=== PATIENT | female | born 1970 | race Caucasian/White ===

== ENCOUNTER 2024-07-18 11:04 | Outpatient (AMB) | payer OTHER, SELFPAY ==
--- NOTE | 2024-07-18 11:09 | A.OFFPC_ITS ---
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 Intake Note: New patient visit Map Compiler Required: No Allergies No Known Allergies Allergy (Verified 07/18/24 11:23) Medication List - Last Reconciled 07/18/24 by VY Yoo- levothyroxine 150 mcg PO DAILY simvastatin 40 mg PO BEDTIME Tobacco use date assessed: 07/18/24 Dental Screening Dental Screen Date: 07/18/24 Did you have a dental visit in the last 12 months?: Yes Did you have a dental problem in the last 6 months where you did not have access to dental care?: No Was dental information given to patient?: Patient has dentist HPI HPI Comments History of Present Illness Details 54 y/o F with obesity, hypothyroid, HLD, MDD, menopause Social: recently , in school for [employer], will be done middle of next year; working at [employer] Surgery: s/p bilat hip replacement, s/p lap band that was removed Health Maintenance Mammo ordered today DEXA ordered today [place] [facility] [place] [facility] [employer] [place] Colon done at [place], declined updated referral at this time; Tdap admin today Specialists Counseling History of Present Illness - The patient is a 54-year-old female pr esenting for the establishment of care. Previous PCP: Trudi, no records avail. - Obesity with a BMI of 43.8. - Hyperlipidemia treated with simvastati n 40 mg. - Hypothyroidism managed with levothyrox ine 150 mcg; recent lapse in medication, but is now taking. - History of depression related to a pre vious marriage. Discontinuation of Cymbalta 60 mg. Feels needs this again, just at lower dose. Denies SI/HI. In counseling. - Post-menopausal. Review of Systems - General: Denies recent weight changes other than obesity concerns. - Endocrine: Reports hypothyroidism, man aged with medication. - Psychiatric: Reports episodes of depre ssion, seeking less medication following discontinuation of Cymbalta. - Musculoskeletal: Reports history of hi p replacements. - Reproductive/Breast: Reports menopause , denies current gynecological symptoms. Physical Exam General: Well developed, well nourished, in no acute distress. Appears stated age. Head: Normocephalic, atraumatic. Eyes: Pupils are equal, round and reactive to light and accommodation. Conjunctivae are clear. Neck: thyroid nontender. Lungs: Clear to auscultation bilaterally. No rales, rhonchi or wheeze noted. Good air flow in all galindo. Heart: Regular rate and rhythm. No murmurs, click, rubs or gallops are noted. Pulses: Peripheral pulses are equal and palpable bilaterally. Extremities: No clubbing, cyanosis nor edema is noted. Psych: Mood and affect appropriate. Results Pending. Discussion Notes During the visit, we discussed the management of several chronic conditions, such as obesity, hyperlipidemia, and hypothyroidism. We reviewed the patient's challenges with past medication refills, particularly with levothyroid and Cymbalta, and outlined the plans for managing these prescriptions going forward. I underscored the importance of completing a thorough lab workup, including assessments for thyroid function and cholesterol levels, and screening for anemia and diabetes. I initiated orders for these tests. Additionally, we agreed to address her needs for a mammogram and bone density screening, and I informed her about setting up an account on our patient portal for more streamlined and direct communication. We also agreed to restart Cymbalta at a lower dose of 20 mg once daily due to previous difficulties and planned follow-up consultations. Assessment and Plan 1. Obesity - Order baseline labs for metabolic and thyroid evaluation. - Continue comprehensive management. 2. Hyperlipidemia - Continue simvastatin 40 mg daily. - Order lipid panel. - will send refill of simvastatin after labs are reviewed. 3. Hypothyroidism - Continue levothyroxine 150 mcg daily. - Check thyroid labs. - refill will be needed once lab are rev iewed 4. Depression - Restart Cymbalta at 20 mg daily. - Monitor changes. - cont counseling, fu on efficacy at nex t visit 5. Menopause - Schedule mammogram and bone density te sting. RTO in a few weeks for a CPE and to f/u on mood after starting Duloxetine. Patient Instructions - Continue current medications?levothyro xine and simvastatin?as prescribed. - Begin Cymbalta 20 mg daily and report any side effects. - Complete lab tests as directed today. - Follow up with all scheduled screening s as informed. - Use the patient portal for communicati on with the healthcare provider. At close of note, there are no labs resulted or pending. once these are available i can send a refill. Consent Patient was informed and verbally consented to the use of an ambient scribe for clinic note documentation during this visit. Total time spent caring for the patient today was 40 minutes. This includes time spent before the visit reviewing the chart, time spent during the visit, and time spent after the visit on documentation, reviewing laboratory results, diagnostic imaging, medications, performing a medically necessary evaluation, counseling on diagnoses, care coordination, ordering appropriate tests, ordering appropriate medications, review of tests performed by other providers, reporting test results with the patient, communication with other healthcare providers. 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 1. Little interest or pleasure in doing things: not at all 2. Feeling down, depressed, or hopeless: not at all 3. Trouble falling or staying asleep, or sleeping too much: not at all 4. Feeling tired or having little energy: not at all 5. Poor appetite or overeating: not at all 6. Feeling bad about yourself - or that you are a failure or have let yourself or your family down: not at all 7. Trouble concentrating on things, such as reading the newspaper or watching television: not at all 8. Moving or speaking so slowly that other people could have noticed. Or the opposite - being so fidgety or restless that you have been moving around a lot more than usual: not at all 9. Thoughts that you would be better off or of hurting yourself in some way: not at all Total score: 0 Depression Screening Interpretation: Negative Depression Screening Done: Yes 56773 - PHQ-9 Billing: Yes Source: Developed by Drs. Roberto Groves, Tiffany Vann, Mayito Ortez and colleagues, with an educational nanci from [employer]. Thrive Questionnaire Date Thrive assessed: 07/18/24 I am a: Patient What is your living situation today?: I have a steady place to live Within the past 12 months, did the food you bought not last and you didn't have the money to get more?: Never true Within the past 12 months, did you worry whether your food would run out before you got money to buy more?: Never true Do you have trouble paying for medicines?: No Do you have trouble getting transportation to medical appointments?: No Do you have trouble paying your heating and electricity bill?: No Do you have trouble taking care of your child, family member or friend?: No Do you have trouble with day-to-day activities such as bathing, preparing meals, shopping, managing finances, etc.?: No Are you currently unemployed and looking for a job?: No Are you interested in more education?: No Please select the resources that you would like help with: None Currently or been in a relationship where the following occur: Controlled Financially and Controlled Emotionally THRIVE Score: 2 AUDIT C Alcohol Use Questionnaire (AUDIT-C) 1. How often do you have a drink containing alcohol?: Monthly or less 2. How many drinks containing alcohol do you have on a typical day when you are drinking?: 1 or 2 3. How often do you have six or more drinks on one occasion?: Never Total Score: 1 Score Reviewed/Action Taken: Yes PABLO-7 AMB Questionnaire PABLO-7 Date PABLO - 7 assessed: 07/18/24 Feeling nervous, anxious, or on edge: 0 = Not at all Not being able to stop or control worryin = Not at all Worrying too much about different things: 0 = Not at all Trouble relaxin = Not at all Being so restless that it is hard to sit still: 0 = Not at all Becoming easily annoyed or irritable: 0 = Not at all Feeling afraid as if something awful might happen: 0 = Not at all Total PABLO-7 score (0-4 normal; 5-9 mild; 10-14 moderate; 15-21 severe): 0 Source: Developed by Drs. Roberto Groves, Tiffany Vann, Mayito Ortez and colleagues, with an educational nanci from [employer]. PABLO-7 Assessment Billing PABLO-7 Assessment Tool: PABLO-7 Assessment 73761 Physical exam (Primary Care) Vital Signs: Last Vital Signs Temp 97.5 F 07/18/24 11:14 Pulse 76 07/18/24 11:14 Resp 14 07/18/24 11:14 BP 124/86 07/18/24 11:14 Pulse Ox 97 07/18/24 11:14 Oxygen Delivery Method Room Air 07/18/24 11:14 BMI result Body Mass Index 43.8 BMI Assessment/Plan discussion: High BMI High, discussed plan: lifestyle Tobacco/Smoking Status: Tobacco use Status Tobacco use date assessed 07/18/24 07/18/24 11:13 Patient Tobacco Use Status Former Tobacco user 07/18/24 11:27 e-Cigarette/Vaping Use Never Used 07/18/24 11:27 PHQ-9: PHQ-9 Score PHQ-9: Total score 0 07/18/24 11:16 Depression Screening Interpretation: Negative Thrive Assessment: Date of Thrive Assessment Date Thrive assessed 07/18/24 07/18/24 11:13 Currently or been in a relationship where the following occur: Controlled Financially and Controlled Emotionally Immunizations Boostrix Tdap 2.5 Lf unit-8 mcg-5 Lf/0.5 mL intramuscular syringe Performing Provider: STEPHIE Yoo Performing Location: [facility] Family [facility] Administered by: Dot Mcclain CMA on 07/18/24 11:28 Dose Route Admin Location Dispensed Lot Number Expiration Date NDC Design Editor 0.5 mL IM Left Deltoid 0.5 mL [id number] 10/10/26 [id number] [employer] VIS Given Date VIS Provided VIS Publication Date 07/18/24 Single Vaccine 20 Eligibility Eligibility Date Funding Source Not [facility] Eligible 07/18/24 Private Coding Level of Care Code New Pt Level 4 (96426) Complex EM visit Add On G2211 Diagnoses Encounter to establish care Z76.89 Obesity, morbid, BMI 40.0-49.9 E66.01 Mixed hyperlipidemia E78.2 Hyperlipidemia type: mixed hyperlipidemia Acquired hypothyroidism E03.9 Hypothyroidism type: acquired History of bilateral hip replacements Z96.643 Laterality: bilateral Mild episode of recurrent major depressive disorder F33.0 Major depression episode severity: mild Need for Tdap vaccination Z23 Menopause Z78.0 Additional Codes PABLO-7 Assessment Billing - PABLO-7 Assessment Tool: PABLO-7 Assessment 60923 ([id number]) PHQ-9 - 65203 - PHQ-9 Billing: Yes ([id number]) Assessment & Plan Assessment & Plan (1) Encounter to establish care: Code(s): Z76.89 - Persons encountering health services in other specified circumstances Category: Medical (2) Obesity, morbid, BMI 40.0-49.9: Code(s): E66.01 - Morbid (severe) obesity due to excess calories Category: Medical (3) HLD (hyperlipidemia): Code(s): E78.5 - Hyperlipidemia, unspecified Category: Medical Qualifiers: Hyperlipidemia type: mixed hyperlipidemia Qualified Code(s): E78.2 - Mixed hyperlipidemia (4) Hypothyroid: Code(s): E03.9 - Hypothyroidism, unspecified Category: Medical Qualifiers: Hypothyroidism type: acquired Qualified Code(s): E03.9 - Hypothyroidism, unspecified (5) History of hip replacement: Code(s): Z96.649 - Presence of unspecified artificial hip joint Qualifiers: Laterality: bilateral Qualified Code(s): Z96.643 - Presence of artificial hip joint, bilateral (6) MDD (major depressive disorder), recurrent episode: Code(s): F33.9 - Major depressive disorder, recurrent, unspecified Category: Medical Qualifiers: Major depression episode severity: mild Qualified Code(s): F33.0 - Major depressive disorder, recurrent, mild (7) Need for Tdap vaccination: Code(s): Z23 - Encounter for immunization Category: Medical (8) Menopause: Code(s): Z78.0 - Asymptomatic menopausal state Category: Medical Plan . Orders: Orders TDaP Immunization Today Z23 - Encounter for immunization Comprehensive Met. Panel Today E03.9 - Hypothyroidism, unspecified, E78.5 - Hyperlipidemia, unspecified Complete Blood Count no Diff Today E03.9 - Hypothyroidism, unspecified, E78.5 - Hyperlipidemia, unspecified MM tomosynthesis screening BI Today Z12.31 - Encounter for screening mammogram for malignant neoplasm of breast XR DEXA axial skeleton Today Z13.820 - Encounter for screening for osteoporosis, Z78.0 - Asymptomatic menopausal state Hemoglobin A1c Today E03.9 - Hypothyroidism, unspecified, E78.5 - Hyperlipidemia, unspecified Lipid Panel Today E03.9 - Hypothyroidism, unspecified, E78.5 - Hyperlipidemia, unspecified IRON PROFILE Today E03.9 - Hypothyroidism, unspecified, E78.5 - Hyperlipidemia, unspecified Microalbumin, Random (w Creat) Today E03.9 - Hypothyroidism, unspecified, E78.5 - Hyperlipidemia, unspecified TSH reflex Free T4 Today E03.9 - Hypothyroidism, unspecified, E78.5 - Hyperlipidemia, unspecified Vitamin B12 and Folate Today E03.9 - Hypothyroidism, unspecified, E78.5 - Hyperlipidemia, unspecified Vitamin D 25-OH Total Today E03.9 - Hypothyroidism, unspecified, E78.5 - Hyperlipidemia, unspecified Referrals COUNT TEAM MEMBER Referral Z12.4 - Encounter for screening for malignant neoplasm of cervix Medications: New duloxetine (Cymbalta) 20 mg PO DAILY 90 caps 2RF Patient Instructions: Walk-In Care (Urgent Care): We Make it Easy Walk-in for urgent medical issues such as: ? Seasonal Allergies ? Insect Bites ? Cough ? Diarrhea ? Acute Asthma Attacks ? Back, Knee or Joint Pain ? Ear Infection ? Fever without a Rash ? Headaches ? Nausea ? [place], Rash or Skin Irritation ? Sore Throat ? Sports Physicals ? Vomiting Most insurances are accepted. Patients do not need to be part of the [facility] to seek care at the walk-in clinic. Locations [facility] , [place] [address] ? [phone] [facility] Walk-In Care in [place] provides services to ages 18 and over. Open Sunday-Sunday: 8 a.m. to 5 p.m. and Sunday: 9 a.m. to 3 p.m.* *Hours may vary due to staffing availability. To confirm Walk-In Care hours in [place], please call [phone]. [address] [facility], [place] [address] ? [phone] [facility] [place] Care in [place] provides services to ages 12 and over. Open Sunday-Sunday: 8 a.m. to 5 p.m. Hours may vary due to staffing availability. To confirm Walk-In Care hours in [place], please call [phone]. LABORATORY SERVICES: [facility] Lab ? Primary Location [address] [place] [address] Sunday through Sunday 6:00 AM ? 5:00 PM Sunday 7:00 AM ? 11:00 AM* [phone] The [facility] Lab is centrally located near the front entrance of the [facility] for easy outpatient access. Convenient parking is provided for outpatients. *Hours may vary due to staffing availability. To confirm Laboratory hours for any location, please call [phone]. Offsite Location For your convenience, we offer offsite laboratory draw stations at the following locations: [address] [place] [address] ? [address], [address] Sunday through Sunday 7:30 AM ? 1:00 PM* [phone] *Hours may vary due to staffing availability. To confirm Laboratory hours for any location, please call [phone]. [place] ? [address] Sunday through Sunday 6:00 AM ? 3:30 PM* Sunday 6:30 AM ? 3 PM* [phone] *Hours may vary due to staffing availability. To confirm Laboratory hours for any location, please call [phone] [place] [address] Sunday through Sunday 7:30 AM ? 4:00 PM* [phone] *Hours may vary due to staffing availability. To confirm Laboratory hours for any location, please call [phone] [place] [address] Sunday through 9:00 AM ? 4:00 PM* *Hours may vary due to staffing availability. To confirm Laboratory hours for any location, please call [phone]. Appointments are not necessary. Walk-ins are welcome. Like all the departments throughout the [facility], our Lab undergoes frequent reviews to ensure the quality and accuracy of test results, and our staff takes special pride in its status as a nationally accredited facility. Patient Portal: ONE PATIENT. ONE RECORD. BETTER CARE. [facility] has a fully integrated, cutting- edge mobile electronic health information system that has revolutionized the way we care for our patients and manage our organization. This system improves communication and coordination enabling us to provide safe, higher-quality care, and an overall positive experience for staff and patients. Our first priority, as always, is to deliver the highest quality care possible. The system is running in the background supporting that priority. This portal is for all [facility] services and practices. If you are experiencing any technical difficulties with enrolling or logging into the Patient Portal please complete the [facility] Patient Portal Technical Support Form. [facility] now offers a new secure on-line interactive tool for patients to review their health information ? ?Patient Portal. This interactive web portal will enable patients and their families to take an active role in their care by providing easy, secure access to their health information via the internet. The Patient Portal provides patients with instant access to their health information, including laboratory results, medications, allergies, demographic information, visit history, and more. In addition to managing their own care, parents and health care proxies with authorized consent will appreciate the ability to access the records of those individuals for whom they provide care. Please note: if you wish to gain access (Proxy) to another patient?s portal, you will be required to come to the Medical Records Department in person at [facility]. Both the patient giving proxy access and the proxy will need to provide photo identification and complete the appropriate authorization. The Patient Portal also allows track their appointments online. The [facility] Patient Portal also saves patients time by allowing them to submit updates to their demographic and contact information prior to their visits. Portal email notifications will also alert patients to any new activity on their portal, such as test results and new appointments. In order to initially enroll in the [facility] Patient Portal, you will need to enter some required information including the following: * your [facility] Medical Record number * your personal home email address * name * date of Please note: In order to enroll in the [facility] Patient Portal, we need to have your email address on file in your electronic medical record. ?The email address needs to be specific for one person (yourself) in order for your Portal enrollment to be successful. ?You can update your email address in person with our Registration staff when you are registering for a hospital visit. ?Otherwise, you will need to come to the Health Information Management (Medical Records) Department at [facility]. ?We are open from Sunday ? Sunday from 7:30 a.m. ? 4:30 p.m. ?You will be required to present a photo id. Once you have successfully enrolled in the Patient Portal, you will receive a one-time user id and password for the Portal, sent to your email address. ?This will allow you to log into the Patient Portal within 99 hrs and reset your own logon id and password, and define personal security questions. ?Once your permanent login and password have been set, you can log into the [facility] Patient Portal at any time via the blue button above or from the Portal Logon button on any page of the [facility] website. [facility] and [facility] encourage all of our patients to enroll in Patient Portal as it presents a valuable opportunity for patients and their families to actively participate in their care and stay healthy Welcome to [facility]. ?We look forward to working with you.
[2024-07-18 11:14] VITALS: BP 124/86; PULSE 76; RESP 14; TEMP 36.4; O2SAT 97; BMI 43.8
--- OUTSIDE RECORDS SUMMARY | 2024-07-18 11:56 | XMS_ITS | Clinical Summary ---
Author Organization [facility] [address] [facility] Address [address] [place] [address] Phone Care Team Providers Care Nuclear Physics Professor Name Role Phone Joanna Palomares MD Primary Care Provider [phone] Allergies No known active allergies Medications estradioL (ESTRACE) 0.5 mg tablet TAKE 1 TABLET BY MOUTH EVERYDAY AT BEDTIME 90 tablet 01/18/20 24 Active progesterone (Prometrium) 100 mg capsule TAKE (1) CAPSULE BY MOUTH AT BEDTIME. 90 capsule 01/18/20 24 Active valACYclovir (VALTREX) 500 mg tablet Take 1 tablet (500 mg total) by mouth 1 (one) time each day. Active DULoxetine (CYMBALTA) [address] capsule Take 1 capsule (60 mg total) by mouth 1 (one) time each day. Active lifitegrast (Xiidra) 5 % dropperette SOWMYA Active levothyroxine (SYNTHROID, LEVOTHROID) 150 mcg tablet 05/19/19 25 Active simvastatin (ZOCOR) 40 mg tablet Take 1 tablet (40 mg total) by mouth at bedtime. 18 tablet 07/01/19 25 Active simvastatin (ZOCOR) 40 mg tablet Take 1 tablet (40 mg total) by mouth at bedtime. 90 tablet 01/21/20 24 025 Discontinued(Re order) butalbital-acet aminophen-caffe ine (FIORICET, ESGIC) 50-325-40 mg per tablet Take 1 tablet by mouth. 01/15/20 20 025 Discontinued levothyroxine (SYNTHROID, LEVOTHROID) 125 mcg tablet TAKE 1 TABLET BY MOUTH EVERY DAY BEFORE BREAKFAST 90 tablet 1 02/05/20 24 025 Discontinued Active Problems Problem Noted Date Diagnosed Date History of total hip arthroplasty 04/24/2024 Overview (04/24/2024): Right 09/30, left 2021 Herpes infection 08/21/2022 Overview (04/24/2024): COVID-19 virus infection 01/26/2020 Lumbar spinal stenosis 12/01/2015 Overview (01/22/2024): L4-5 BALTA (iron deficiency anemia) 03/04/2015 GERD (gastroesophageal reflux disease) 5 Lichen sclerosus 04/24/2012 Hypothyroidism 04/08/2009 Allergic rhinitis 01/12/2009 Depression 01/12/2009 Hyperlipidemia 01/12/2009 Morbid obesity with BMI of 4 0.0-44.9, adult ([facility] V24, [facility] V28) Resolved Problems Problem Noted Date Diagnosed Date Resolved Date Elevated blood pressure reading 11/01/2023 04/24/2024 Blood glucose elevated 04/27/202104/24 Overview (01/22/2024): HA1c of 5.6% (April 2021) Immunizations Name Administration Dates Next Due Influenza trivalent, with preservative (Fluzone; Afluria) 6mo and older 12/04/2015,01/24/2013,11/30/2011,2009 Td Tetanus diptheria (Tdvax) 7yo and older 04/27/2021 Tdap Tetanus diptheria acell ular pertussis (Boostrix; Adacel) 7yo and older 01/12/2009 Surgical History Surgery Date Site/Laterality Comments SECTION ESOPHAGOGASTRODUODENOSCOPY 02/17/2015 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; normal duodenal bxys COLONOSCOPY 04/27/2015 normal; repeat in 10 yrs HAND SURGERY Right : [facility] arthritis surgery BACK SURGERY 2015 L4-5 disc fusion and decompression HIP ARTHROPLASTY 09/2018 Right OTHER SURGICAL HISTORY 2015 Lapband placed, then removed in 2019 (?) HIP ARTHROPLASTY 08/2021 Left Medical History Medical History Date Comments Gastroesophageal reflux dise ase without esophagitis 01/05/2015 Hyperlipidemia 01/12/2009 Depression 01/12/2009 Allergic rhinitis 01/12/2009 Hypothyroidism 04/08/2009 Lichen sclerosus 04/24/2012 BALTA (iron deficiency anemia) 03/04/2015 Lumbar spinal stenosis 12/01/2015 L4-5 Osteoarthritis of right hip 12/21/2018 : S/ p total hip replacement 09/2018 COVID-19 virus infection 01/26/2020 Family History Medical History Relation Name Comments Breast cancer Aunt maternal unilateral? ag e? - with bone mets Diabetes Brother x 2 Heart attack Father lung cancer (+s moker), HTN, HLD Pancreatic cancer Mother T2DM, hype rtension, cholesterol Diabetes Sister x 1 Relation Name Status Comments Aunt maternal Brother x 2 Alive Father Maternal Grandfather Maternal Grandmother Mother Paternal Grandfather Paternal Grandmother Sister x 1 Alive Social History Tobacco Use Types Packs/Day Years Used Date Smoking Tobacco: Former Cigarettes 0.5 4 0 02/12/1986 - 02/12/1990 Smokeless Tobacco: Never Alcohol Use Standard Drinks/Week Comments Yes 0 (1 standard drink = 0.6 oz pur e alcohol) Comments Unknown Sex and Gender Information Value Date Recorded Sex Assigned at Not on file Legal Sex Female 4:45 PM EST Gender Identity Not on file Sexual Orientation Not on file Obstetrics History Last Filed Vital Signs Vital Sign Reading Time Taken Comments Blood Pressure 146/84 11/01/2023 3:41 PM EDT Pulse 67 11/01/2023 3:30 PM EDT Temperature - - Respiratory Rate - - Oxygen Saturation - - Inhaled Oxygen Concentration - - Weight 106 kg (233 lb) 11/01/2023 3:30 PM EDT Height 156.2 cm (5' 1.5 ) 11/01/2023 3:30 PM EDT Body Mass Index 43.31 11/01/2023 3:30 PM EDT Plan of Treatment Health Maintenance Due Date Last Done Comments Hepatitis B Vaccines (1 of 3 - 19+ 3-dose series) 06/08/1990 Breast Cancer Screening 08/09/2019 08/08/2017 Pneumococcal Vaccine: 50+ Years (1 of 1 - PCV) 06/08/2021 Zoster Vaccines (1 of 2) 06/08/2021 Depression Screening 01/21/2022 HIV Screening 01/21/2022 Social Influencers of Health Screening 01/21/2022 COVID-19 Vaccine (3 - season) 2023 07/01/2020, 2020 Influenza Vaccine (Season Ended) 2024 12/04/2015, 01/24/2013, 11/30/2011, Additional history exists Cervical Cancer Screening: HPV 02/22/2025 02/23/2020 Colorectal Cancer Screening: Colonoscopy 04/26/2025 04/27/2015 Cholesterol Screening (Lipid Panel) 12/03/2028 12/04/2023, 12/04/2023 DTaP,Tdap,and Td Vaccines (3 - Td or Tdap) 04/28/2031 04/27/2021, 01/12/2009 Hepatitis C Screening Completed 03/03/2022 HIB Vaccines Aged Out No longer eligi ble based on patient's age to complete this topic HPV Vaccines Aged Out No longer eligi ble based on patient's age to complete this topic Hepatitis A Vaccines Aged Out No long er eligible based on patient's age to complete this topic IPV Vaccines Aged Out No longer eligi ble based on patient's age to complete this topic MMR Vaccines Aged Out No longer eligi ble based on patient's age to complete this topic Meningococcal ACWY Vaccine Aged Out N o longer eligible based on patient's age to complete this topic Meningococcal B Vaccine Aged Out No l onger eligible based on patient's age to complete this topic Pneumococcal Vaccine: Pediatrics (0 to 5 Years) and At-Risk Patients (6 to 64 Years) Aged Out No longer eligible based on patient's age to complete this topic RSV Immunization Patients Under 20 months Aged Out No longer eligible based on patient's age to complete this topic Varicella Vaccines Aged Out No longer eligible based on patient's age to complete this topic Procedures Procedure Name Priority Date/Time Associated Diagnosis Comments LIPID PANEL Routine 12/04/2023 HEPATITIS C SCREENING Routine 03/03/2022 HPV Routine 02/23/2020 SCR MAMMO BI INCL CAD Routine 08/08/2017 9:14 AM EDT Encounter for screening mammogram for malignant neoplasm of breast Hyperlipidemia, unspecified Atrophy of thyroid (acquired) Gastro-esophageal reflux disease without esophagitis COLONOSCOPY Routine 04/27/2015 from Last 3 Months or Most Recently Relevant to Health Maintenance Results * (ABNORMAL) Lipid panel (12/04/2023) Pathologist [facility] LDL/HDL Ratio 3 0 - 4 Triglycerides 150 0 - 150 mg/dL Cholesterol 191 0 - 200 mg/dL HDL 57 >=40 mg/dL LDL Cholesterol 104(A) 0 - 100 mg/dL Blood Venous blood specimen / Unknown [facility] Provider LAB BLOOD ORDERABLES Noemy l Result * Hepatitis C Screening (03/03/2022) Pathologist [facility] Hepatitis C Screening Abstracted [facility] Provider HEALTH MAINTENANCE Final Result * Cervical Cancer Screening: HPV (02/23/2020) [facility] Cervical Cancer Screening: HPV Negative, Abstracted [facility] Provider HEALTH MAINTENANCE Final Result * SCR MAMMO BI INCL CAD (08/08/2017 9:14 AM EDT) Anatomical Region Laterality Modality Radiographic Dominga ging 08/18/2016 12:0 4 PM EDT Narrative 08/08/2017 7:13 PM EDT This is a summary report. The complete report is available in the patient's medical record. If you cannot access the medical record, please contact the sending organization for a detailed fax or copy. Full field digital screening mammography, reviewed with CAD and compared to previous. ??The breasts are composed of fatty and fibroglandular tissue. ??No suspicious mass, architectural distortion or suspicious calcifications are identified. IMPRESSION: : No mammographic evidence of malignancy. BIRADS 1-Negative; N. 5 year breast cancer risk assessment 0.9 % Lifetime breast cancer risk assessment 9.6 % Breast cancer risk category Low (<15%) Procedure Note Gabriel Brice MD - 01/31/2022 This is a summary report. The complete report is available in thepatient's medical record. If you cannot access the medical record, pleasecontact the sending organization for a detailed fax or copy. Full field digital screening mammography, reviewed with CAD and comparedto previous. The breasts are composed of fatty and fibroglandular tissue.No suspicious mass, architectural distortion or suspicious calcificationsare identified. IMPRESSION: : No mammographic evidence of malignancy. BIRADS 1-Negative; N. 5 year breast cancer risk assessment 0.9 % Lifetime breast cancer risk assessment 9.6 % Breast cancer risk category Low (<15%) Иван VASQUEZ IMG XR PROCEDURES Final R esult * Colonoscopy (04/27/2015) Colonoscopy No Interpretation , Abstracted Anatomical Region Laterality Modality Other Historical Provider HEALTH MAINTENANCE Final Result from Last 3 Months or Most Recently Relevant to Health Maintenance Care Teams Nuclear Physics Professor Relationship Specialty Start Date End Date Joanna Palomares MD [address] [place] [address] PCP - General Internal Medicine 06/18/24
== END 2024-07-18 11:46 | disposition home or self-care (01) ==
LOC: HO.HMCFM 11:05
PROVIDERS: PCP Nurse Practitioner Family; Visit Provider Nurse Practitioner Family
DX: E78.2 Mixed hyperlipidemia (principal); E66.01 Morbid (severe) obesity due to excess calories; Z76.89 Persons encountering health services in other specified circumstances; Z68.41 Body mass index [BMI] 40.0-44.9, adult; E03.9 Hypothyroidism, unspecified; Z96.643 Presence of artificial hip joint, bilateral; F33.0 Major depressive disorder, recurrent, mild; Z23 Encounter for immunization; Z78.0 Asymptomatic menopausal state

== ENCOUNTER → 2024-07-18 11:04 | Outpatient (BNVA) | payer OTHER, SELFPAY | PROVIDERS: PCP Nurse Practitioner Family; Visit Provider Nurse Practitioner Family | DX: Z00.00 Encounter for general adult medical examination without abnormal findings (principal); E03.9 Hypothyroidism, unspecified; E66.01 Morbid (severe) obesity due to excess calories; E78.2 Mixed hyperlipidemia; F33.0 Major depressive disorder, recurrent, mild; Z23 Encounter for immunization; Z96.643 Presence of artificial hip joint, bilateral; Z78.0 Asymptomatic menopausal state; Z76.89 Persons encountering health services in other specified circumstances; Z68.41 Body mass index [BMI] 40.0-44.9, adult | CPT/HCPCS: 90471; 90715; 96127 ==

== ENCOUNTER 2024-08-14 11:33 | Outpatient (REF) | payer OTHER, SELFPAY ==
[2024-08-14 14:54] LABS: Hematocrit 43.0 % (37.0-47.0); Hemoglobin 14.9 g/dl (12.0-16.0); Mean Corpuscular HGB Conc 34.7 g/dl (31.0-35.0); Mean Corpuscular Hemoglobin 31.2 pg (27.0-33.0); Mean Corpuscular Volume 90.0 fL (80.0-98.0); NRBC Abs Auto 0.000 X10*3/uL (0.0-0.012); NRBC Pct Auto 0.0 /100WBC (0.0-0.2); Platelet Count 294 X10*3/uL (160-400); Red Blood Count 4.78 X10*6/uL (4.20-5.50); White Blood Count 5.6 X10*3/uL (4.8-10.8)
[2024-08-14 15:18] LABS: Hemoglobin A1C 122.2734 umol/L; Total Hemoglobin (HGBA1C) 3933.2673 umol/L
[2024-08-14 15:53] LABS: Folate 12.0 ng/mL (> or = 4.0); Vitamin B12 645 pg/mL (200-900)
[2024-08-14 15:57] LABS: Alanine Aminotransferase 34 U/L (0-31); Albumin Level 4.3 g/dL (3.5-5.0); Alkaline Phosphatase 68 U/L (39-117); Anion Gap 12 (12-20); Aspartate Amino Transferase 33 U/L (5-31); Blood Urea Nitrogen 10 mg/dL (9-16); Calcium 9.2 mg/dL (8.4-10.2); Carbon Dioxide 26 mmol/L (22-29); Chloride 106 mmol/L (96-108); Cholesterol 203 mg/dL (<200); Estimated Glomerular Filt Rate > 60; HDL Cholesterol 59 mg/dL (>40); Iron 106 mcg/dL (30-160); Percent Iron Saturation 37 % (15-50); Potassium 3.8 mmol/L (3.3-5.1); Sodium 140 mmol/L (135-145); Total Iron Binding Capacity 289 mcg/dL (228-428); Total Protein 7.0 g/dL (6.5-8.0); Triglycerides 124 mg/dL (<150); Unsaturated Iron Binding 183 ug/dL
[2024-08-14 16:11] LABS: Microalbum/Creatinine Ratio Ur 9.9 ug/mg cr (<30)
== END 2024-08-14 11:34 | disposition home or self-care (01) ==
LOC: HO.WFDLDS 11:33
PROVIDERS: Visit Provider Nurse Practitioner Family
DX: Z13.1 Encounter for screening for diabetes mellitus (principal); E03.9 Hypothyroidism, unspecified; E78.5 Hyperlipidemia, unspecified
CPT/HCPCS: 36415; 80053; 80061; 82043; 82306; 82570; 82607; 82746; 83036; 83540; 84443; 85027

== ENCOUNTER 2024-08-14 12:08 | Outpatient (AMB) | payer OTHER, SELFPAY ==
[2024-08-14 12:41] VITALS: BP 138/88; PULSE 64; TEMP 36.9; O2SAT 99; BMI 42.7
--- NOTE | 2024-08-14 12:41 | AM.OFFWIN_ITS ---
Intake Vital Signs 08/14/24 12:41 Height 5 ft 1.5 in Weight 230 lb BMI 42.7 BP 138/88 Blood Pressure Location Lt brachial Position Sitting Pulse 64 Pulse Source Pulse Oximeter Temp 98.5 F Temp Source Oral Pulse Oximetry (%) 99 Oxygen Delivery Method Room Air Intake Visit Reasons: EP ? boil between inner thigh on LT leg Intake Note: presents with a painful lesion on her left upper thigh/buttock fold area developed about 5 days ago Patient Tobacco Use Status: Former Tobacco user Allergies No Known Allergies Allergy (Verified 08/14/24 12:44) Do you need a note to return to daycare/school/sports/work: No HPI HPI Comments History of Present Illness Details History of Present Illness - The patient is a 54-year-old female pr esenting with a painful lesion on the left leg. - The lesion was noticed approximately f our to five days ago and has been causing significant pain. - The patient reports no history of feve r or similar lesions in the past. - The lesion is open and draining and wa s initially hard before opening, with the patient noticing some blood but no pus. - She has a constant pain and it hurts t o touch. - She has not taken anything for the linda n. - She denies fever, chills, GUZMAN, CP, SOB, abd pain, n/v/d Physical Exam General: Cooperative, healthy appearing, comfortable, no acute distress and well developed Orientation: Patient oriented x3 Respiratory: Normal respiratory effort and able to speak in complete sentences. Clear to auscultation bilaterally Cardiovascular: Regular rate and rhythm. Normal S1 and S2 Skin: Abscess noted on the leg at the gluteal crease on the left. Scab noted with some discharge. Induration and redness to the surrounding area. No streaking, tender to palpation. Patient was informed and verbally consented to the use of an ambient scribe for clinic note documentation during this visit. 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 Current occupational exposures/hazards: No Cognitive needs: No Hearing needs: No Vision needs: Yes (glasses) Review of Systems Const All systems reviewed & are unremarkable except as noted in HPI and below Physical Exam Vital Signs: Last Vital Signs Temp 98.5 F 08/14/24 12:41 Pulse 64 08/14/24 12:41 BP 138/88 08/14/24 12:41 Pulse Ox 99 08/14/24 12:41 Oxygen Delivery Method Room Air 08/14/24 12:41 BMI result Body Mass Index 42.7 Assessment & Plan Assessment & Plan (1) Abscess of leg: Code(s): L02.419 - Cutaneous abscess of limb, unspecified Plan Most likely abscess with cellulitis Plan - Warm compresses to the area - Epsom salt baths - Tylenol or motrin as needed - Doxycyline 100 mg BID for 10 days. - Monitor for signs of infection such as fever or increased drainage. Medications: New doxycycline hyclate 100 mg PO BID 20 tabs 0RF 10 days Coding Level of Care Code Est Pt Level 3 (85823) Diagnoses Abscess of leg L02.419
== END 2024-08-14 14:03 | disposition home or self-care (01) ==
PROVIDERS: PCP Nurse Practitioner Family; Visit Provider Physician Assistant Medical
DX: L02.419 Cutaneous abscess of limb, unspecified (principal)

== ENCOUNTER 2024-08-18 08:42 | Outpatient (AMB) | payer OTHER, SELFPAY ==
--- OUTSIDE RECORDS SUMMARY | 2024-08-18 08:54 | XMS_ITS | Clinical Summary ---
Author Organization [facility] [address] [facility] Address [address] [place] [address] Phone Care Team Providers Care Furniture Maker Name Role Phone Joanna Palomares MD Primary Care Provider [phone] Allergies No known active allergies Medications estradioL (ESTRACE) 0.5 mg tablet TAKE 1 TABLET BY MOUTH EVERYDAY AT BEDTIME 90 tablet 4 Active progesterone (Prometrium) 100 mg capsule TAKE (1) CAPSULE BY MOUTH AT BEDTIME. 90 capsule 4 Active valACYclovir (VALTREX) 500 mg tablet Take 1 tablet (500 mg total) by mouth 1 (one) time each day. Active DULoxetine (CYMBALTA) [address] capsule Take 1 capsule (60 mg total) by mouth 1 (one) time each day. Active lifitegrast (Xiidra) 5 % dropperette SOWMYA Active levothyroxine (SYNTHROID, LEVOTHROID) 150 mcg tablet 5 Active simvastatin (ZOCOR) 40 mg tablet Take 1 tablet (40 mg total) by mouth at bedtime. 18 tablet 5 Active Active Problems Problem Noted Date Diagnosed Date [...] obesity with BMI of 4 0.0-44.9, adult ([facility] V24, [facility] V28) Resolved Problems Problem Noted Date Diagnosed Date Resolved Date Elevated blood pressure reading 11/01/2023 04/24/2024 Blood glucose elevated 04/27/202104/24 Overview (01/22/2024): HA1c of 5.6% (April 2021) Encounters Date Type Department Care Team Description 07/22/2024 Telephone Obstetrics and Gynecology [address] [address] [place] Med Refill from Last 3 Months Immunizations Name Administration Dates Next Due Influenza [...] HIP ARTHROPLASTY 09/2018 Right OTHER SURGICAL HISTORY 2016 Lapband placed, then removed in 2019 (?) [...] Influencers of Health Screening 01/21/2022 COVID-19 Vaccine ( - 2023- season) 2023 07/01/2020, 2020 Influenza Vaccine (#1) 2024 6, 01/24/2013, 11/30/2011, Additional history exists Cervical Cancer [...] Maintenance Results * (ABNORMAL) Lipid panel (12/04/2023) [facility] LDL/HDL Ratio 3 0 - 4 Triglycerides 150 0 - 150 mg/dL Cholesterol 191 0 - 200 mg/dL HDL 57 >=40 mg/dL LDL Cholesterol 104(A) 0 - 100 mg/dL Blood Venous blood specimen / Unknown [facility] Provider LAB BLOOD ORDERABLES Noemy l Result * Hepatitis C Screening (03/03/2022) [facility] Hepatitis C Screening Abstracted [facility] Provider HEALTH [facility] Final Result * Cervical Cancer Screening: HPV (02/23/2020) [facility] Cervical Cancer Screening: HPV Negative, Abstracted [facility] Provider HEALTH MAINTENANCE Final Result * [...] reviewed with CAD and compared to previous. The breasts are composed of fatty and fibroglandular tissue. No suspicious mass, architectural distortion or suspicious calcifications [...] Recently Relevant to Health Maintenance Care Teams Furniture Maker Relationship Specialty Start Date End Date Joanna Palomares MD [address] [place] [address] PCP - General Internal Medicine 06/18/24
[2024-08-18 09:08] VITALS: BP 140/88; PULSE 63; TEMP 36.6; O2SAT 99; BMI 42.7
--- NOTE | 2024-08-18 09:08 | AM.OFFWIN_ITS ---
Intake Vital Signs 3 08/18/24 09:08 Height 5 ft 1.5 in Weight 230 lb BMI 42.7 BP 140/88 H Blood Pressure Location Rt brachial Position Sitting Pulse 63 Pulse Source Pulse Oximeter Temp 97.9 F Temp Source Oral Pulse Oximetry (%) 99 Oxygen Delivery Method Room Air Intake Visit Reasons: EP LT leg Intake Note: presents with unresolved Abscess to left buttock fold, pain increased Patient Tobacco Use Status: Former Tobacco user Allergies No Known Allergies Allergy (Verified 08/18/24 09:11) Do you need a note to return to daycare/school/sports/work: Yes Return to daycare/school/sports/work/other note: work HPI HPI Comments 2 History of Present Illness0 Details 54 y/o Female patient who presents to [facility] walk [facility] clinic with c/o Left Thigh Abscess that is Painful and draining yellow discharge. Pt was recently seen 08/14 here for similar issue and was prescribed Doxy for 10 days. Today reports that abscess is draining and has been applying warm compress - continues to take Doxy as prescribed. Denies fevers, chills, nausea or vomiting. 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 Erythematous medium in size abscess, open and draining Yellow discharge. TTP . Neuro General: patient oriented x3, gait normal and moves all extremities Psych Speech and movement: Normal speech and movement present Assessment & Plan Assessment & Plan (1) Abscess of lower extremity: Code(s): L02.419 - Cutaneous abscess of limb, unspecified Plan: Clean wound and applied wet to dry dressing Continue with Doxy and added Keflex NSAIDs for pain relief. Medications: New 2 cephalexin 500 mg PO BID 14 caps 0RF 7 days L02.419 - Cutaneous abscess of limb, unspecified Coding Level of Care Code Est Pt Level 4 (70975) Diagnoses Abscess of lower extremity L02.419 Time Spent (min) 20
== END 2024-08-18 10:03 | disposition home or self-care (01) ==
PROVIDERS: PCP Nurse Practitioner Family; Visit Provider Nurse Practitioner Family
DX: L02.419 Cutaneous abscess of limb, unspecified (principal)

== ENCOUNTER 2024-08-20 10:17 | Outpatient (AMB) | payer OTHER, SELFPAY ==
--- NOTE | 2024-08-20 10:21 | A.OFFPC_ITS ---
Vital Signs 3 08/20/24 10:31 BP 185/97 H Blood Pressure Location Lt brachial Position Sitting Respiration 12 Pulse 59 Pulse Source Pulse Oximeter Temp 98.2 F Temp Source Oral Pulse Oximetry (%) 97 Oxygen Delivery Method Room Air Intake Visit Reasons: in person, re-eval cellulitis, work note Intake Note: Abscess left leg. Was seen at walk in twice. [place] Layer Required: No Allergies No Known Allergies Allergy (Verified 08/20/24 10:32) Medication List - Last Reconciled 08/20/24 by VY Yoo- cephalexin 500 mg PO BID 7 days doxycycline hyclate 100 mg PO BID 10 days duloxetine (Cymbalta) 20 mg PO DAILY levothyroxine 150 mcg PO DAILY multivitamin (Daily Multi-Vitamin tablet) 1 tab PO DAILY simvastatin 80 mg PO BEDTIME ubidecarenone-omega 3-vit E 25-150-200 mg-mg-unit (Co L-04-Zsoiqoz E-Fish Oil) 1 cap PO DAILY Tobacco use date assessed: 08/20/24 Dental Screening Dental Screen Date: 07/18/24 HPI HPI Comments 2 History of Present Illness0 Details 54 y/o F with obesity, hypothyroid, HLD, MDD, menopause Social: recently , in school for [employer], will be done middle of next year; working at [employer] Surgery: s/p bilat hip replacement, s/p lap band that was removed Health Maintenance Mammo ordered today DEXA ordered today Pap referred to [facility] today Colon done at [place], declined updated referral at this time; Tdap 2024 Specialists Counseling History of Present Illness - The patient is a 54-year-old female pr esenting with a follow-up for cellulitis L thigh. - Initial symptoms managed with doxycycl ine starting August 14; additional Keflex added after August 18 visit due to persistence. - Cellulitis localized to the back of th e left thigh, with reports of soreness and drainage. - Noticeable improvement noted by friend , no systemic symptoms such as fever or chills. - Reports of high blood pressure today, with ongoing stress due to living conditions. Denies cardiac complaints. - Absence from work since August 15 due t o cellulitis severity and await clearance for return. Review of Systems - Skin: Reports soreness and drainage fr om the area of cellulitis. - Cardiovascular: Denies chest pain. - General: Denies fever and chills. - Musculoskeletal: Reports inability to sit comfortably due to painful cellulitis. - Social: Elevated stress levels due to housing issues including broken air conditioning. Physical Exam L inner thigh, not tender to touch, no drainage, flutuance or induration. Area cleansed, Xeroform gauze and DCD applied. Discussion Notes During the visit, we discussed the patient's progress regarding her cellulitis treatment. The initial antibiotic, doxycycline, has been continued, supplemented by Keflex as cerulean drainage persisted. The lesion on her left thigh has shown improvement but is still under observation for further reduction in symptoms. The patient understands the necessity of continued antibiotic therapy and will complete both prescriptions as directed. Regarding her elevated blood pressure today, I reassured her that stressors, like current housing issues, may be contributory and recommended a follow-up evaluation for hypertension. I advised a two-week follow-up visit with our nurse navigator, Sugey, for a blood pressure recheck. The patient also expressed concern about returning to work; a note will be provided for clearance based on the condition's improvement. Safety during exertion and hygiene for managing the wound were reviewed, with an emphasis on utilizing self-adhering bacterial gauze to prevent irritation and promote healing. We agreed that stress management may be beneficial and discussed her support options, ensuring she feels comfortable reaching out if concerns continue or exacerbate. Assessment and Plan 1. Cellulitis - Continue antibiotics. - Xeroform and DCD QD until healed. - Return to work approved August 22. Not e given. 2. Elevated Blood Pressure - Follow-up in two weeks with nurse for monitoring. - Stress management recommended. Patient Instructions - Continue taking antibiotics as prescri bed. - Use the provided bacterial gauze daily , keeping the area clean and dry. - Make sure to change the gauze if it ge ts wet during exercise. - Monitor stress levels and try stress r elief activities. - Follow up with the nurse navigator in two weeks for a blood pressure check. - Return to work on August 22 if symptom s do not worsen. Consent Patient was informed and verbally consented to the use of an ambient scribe for clinic note documentation during this visit. Total time spent caring for the patient today was 30 minutes. This includes time spent before the visit reviewing the chart, time spent during the visit, and time spent after the visit on documentation, reviewing laboratory results, diagnostic imaging, medications, performing a medically necessary evaluation, counseling on diagnoses, care coordination, ordering appropriate tests, ordering appropriate medications, review of tests performed by other providers, reporting test results with the patient, communication with other healthcare providers. 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 Current occupational exposures/hazards: No Cognitive needs: No Hearing needs: No Vision needs: Yes (glasses) Questionnaire Thrive Questionnaire Date Thrive assessed: 07/18/24 I am a: Patient What is your living situation today?: I have a steady place to live Within the past 12 months, did the food you bought not last and you didn't have the money to get more?: Never true Within the past 12 months, did you worry whether your food would run out before you got money to buy more?: Never true Do you have trouble paying for medicines?: No Do you have trouble getting transportation to medical appointments?: No Do you have trouble paying your heating and electricity bill?: No Do you have trouble taking care of your child, family member or friend?: No Do you have trouble with day-to-day activities such as bathing, preparing meals, shopping, managing finances, etc.?: No Are you currently unemployed and looking for a job?: No Are you interested in more education?: No Please select the resources that you would like help with: None THRIVE Score: 0 AUDIT C Alcohol Use Questionnaire (AUDIT-C) 1. How often do you have a drink containing alcohol?: 2-3 times a week 2. How many drinks containing alcohol do you have on a typical day when you are drinking?: 1 or 2 3. How often do you have six or more drinks on one occasion?: Never Total Score: 3 PABLO-7 AMB Questionnaire PABLO-7 Date PABLO - 7 assessed: 07/18/24 Source: Developed by Drs. Roberto Groves, Tiffany Vann, Mayito Ortez and colleagues, with an educational nanci from [employer]. Physical exam (Primary Care) Tobacco/Smoking Status: Tobacco use Status Tobacco use date assessed 07/18/24 08/20/24 10:22 Patient Tobacco Use Status Former Tobacco user 08/20/24 10:22 e-Cigarette/Vaping Use Never Used 08/20/24 10:22 Thrive Assessment: Date of Thrive Assessment Date Thrive assessed 07/18/24 08/20/24 10:22 Coding Level of Care Code Est Pt Level 4 (88690) Complex EM visit Add On G2211 Diagnoses Cellulitis of left thigh L03.116 Elevated blood pressure reading R03.0 Assessment & Plan Assessment & Plan (1) Cellulitis of left thigh: Code(s): L03.116 - Cellulitis of left lower limb (2) Elevated blood pressure reading: Code(s): R03.0 - Elevated blood-pressure reading, without diagnosis of hypertension Category: Medical Plan .
[2024-08-20 10:31] VITALS: BP 185/97; PULSE 59; RESP 12; TEMP 36.8; O2SAT 97
--- OUTSIDE RECORDS SUMMARY | 2024-08-20 11:06 | XMS_ITS | Clinical Summary ---
Author Organization [facility] [address] [facility] Address [address] [place] [address] Phone Care Team Providers Care Seismology Teacher Name Role Phone Joanna Palomares MD Primary Care Provider [phone] Allergies No known active allergies Medications estradioL [...] obesity with BMI of 4 0.0-44.9, adult ([facility] V24, [facility] V28) Resolved Problems Problem Noted Date Diagnosed Date Resolved Date Elevated blood pressure reading 11/01/2023 04/24/2024 Blood glucose elevated 04/27/202104/24 Overview (01/22/2024): HA1c of 5.6% (April 2021) Encounters Date Type Department Care Team Description 07/22/2024 Telephone Obstetrics and Gynecology [address] [address] [place] Med Refill [...] 5 Years) and At-Risk Patients (6 to 49 Years) Aged Out No longer eligible based [...] Maintenance Results * (ABNORMAL) Lipid panel (12/04/2023) [facility] LDL/HDL Ratio 3 0 - 4 Triglycerides 150 0 - 150 mg/dL Cholesterol 191 0 - 200 mg/dL HDL 57 >=40 mg/dL LDL Cholesterol 104(A) 0 - 100 mg/dL Blood Venous blood specimen / Unknown [facility] Provider LAB BLOOD ORDERABLES Noemy l Result * Hepatitis C Screening (03/03/2022) [facility] Hepatitis C Screening Abstracted [facility] Provider [facility] Final Result * Cervical Cancer Screening: HPV (02/23/2020) [facility] Cervical Cancer Screening: HPV Negative, Abstracted [facility] Provider HEALTH [facility]INTENANCE Final Result * SCR [...] Recently Relevant to Health Maintenance Care Teams Seismology Teacher Relationship Specialty Start Date End Date Joanna Palomares MD [address] [place] [address] PCP - General Internal Medicine 06/18/24
== END 2024-08-20 10:45 | disposition home or self-care (01) ==
LOC: HO.HMCFM 10:18
PROVIDERS: PCP Nurse Practitioner Family; Visit Provider Nurse Practitioner Family
DX: L03.116 Cellulitis of left lower limb (principal); R03.0 Elevated blood-pressure reading, without diagnosis of hypertension